=== PATIENT | male | born 2000 | race African-American/Black ===

== ENCOUNTER 2021-02-08 20:24 | Emergency (ER) | payer SELFPAY ==
[~2021-02-08] VITALS: Ht 160 cm; Wt 68.0 kg
[2021-02-08] MEDS ORDERED: AMOXICILLIN500 M2 PO (21:55)
== END 2021-02-08 22:08 | disposition home or self-care (01) ==
LOC: ED 20:24
DX: K08.89 Other specified disorders of teeth and supporting structures (principal)

== ENCOUNTER → 2021-07-29 | Outpatient (CLI) | payer OTHER ==
[~2021-07-29] MED LIST: AMOXICILLIN500 M2 PO
== END | disposition home or self-care (01) ==
LOC: COVID19 16:46
PROVIDERS: ATTEND Internal Medicine
DX: U07.1 COVID-19 (principal)